=== PATIENT | female | born 1965 | race Caucasian/White ===

== ENCOUNTER 2023-01-23 06:19 | Inpatient (IN) | payer BC ==
[~2023-01-23] VITALS: Ht 154.9 cm; Wt 100.2 kg
[~2023-01-23 06:19] MED LIST: ALPR0.25 PO; AMLO1TAB23 PO; ASPI81CH59 PO; ATOR40TA52 PO; CETI10CA PO; DICL75TA3 PO; ERGO20002 PO; FENO160T PO; FLEC100T PO; FOLI-119 PO; LOSA100T25 PO; METO-159 PO; OME20GT GT; OMEGCAP2 OR; OMEP20TA PO; RED600TA PO; TURM500C3 OR
[2023-01-23] MEDS ORDERED: PREGABALIN CAPSULE 75 MG CAP PO ONE (06:45)
[2023-01-23] MEDS ORDERED: CELECOXIB 100 MG CAP PO ONE (06:45)
[2023-01-23] MEDS ORDERED: ACETAMINOPHEN IV 1000 MG/100ML (10MG/ML) IV ONE (06:45)
[2023-01-23] MEDS ORDERED: VANCOMYCIN HCL 1000 MG VL ONE (07:00)
[2023-01-23] MEDS ORDERED: TRANEXAMIC ACID 20 ML ONE (07:01)
[2023-01-23] MEDS ORDERED: BUPIVACAINE HCL 50 ML ONE (07:01)
[2023-01-23] MEDS ORDERED: EPINEPHrine HCL 1 MG/1 ML AMP ONE (07:01)
[2023-01-23] MEDS ORDERED: KETOROLAC TROMETH 30 MG/ML 1ML VIAL ONE (07:05)
[2023-01-23] MEDS ORDERED: fentaNYL CITRATE 100 MCG/2 ML VL ONE (07:08)
[2023-01-23] MEDS ORDERED: PROPOFOL 10 MG/ML 20 ML IV ONE (07:08)
[2023-01-23] MEDS ORDERED: MORPHINE SULF PF 5 MG/10 ML VIAL ONE (07:09)
[2023-01-23] MEDS ORDERED: MEPERIDINE HCL (25 MG/ML) 1ML VIAL ONE ×3 (07:09→09:00)
[2023-01-23] MEDS ORDERED: ceFAZolin 2 GM/D5W100ml 100 ML IV ONE (07:17)
[2023-01-23] MEDS ORDERED: ONDANSETRON HCL 4 MG/2 ML VIAL ONE (07:26)
[2023-01-23] MEDS ORDERED: DexAMETHasone SOD PHOS 10MG/1ML VIAL INJ ONE (07:26)
[2023-01-23] MEDS ORDERED: ePHEDrine SULFATE 50 MG/ML AMP ONE (07:28)
[2023-01-23] MEDS ORDERED: BUPIVACAINE 0.5% P/F INJ 10 ML VIAL ONE (07:58)
[2023-01-23] MEDS ORDERED: MORPHINE SULFATE INJ 2 MG/ml SYRG IV PRN (08:00)
[2023-01-23] MEDS ORDERED: NITROGLYCERIN 0.4 MG SL TAB SL PRN (08:00)
[2023-01-23] MEDS ORDERED: HYDROmorphone HCL 2 MG/ML VL/or syr IV PRN ×2 (08:00→09:30)
[2023-01-23] MEDS ORDERED: ceFAZolin 1GM/50ML 50 ML IV SCH (08:00)
[2023-01-23] MEDS ORDERED: OMEPRAZOLE 40MG/20ML ORAL SUSP PO SCH (08:00)
[2023-01-23] MEDS ORDERED: SODIUM CHLORIDE LOCK 10 ML ONE (08:40)
[2023-01-23 09:13] VITALS: PULSE 82; RESP 16; O2SAT 97
[2023-01-23] MEDS ORDERED: ONDANSETRON HCL 4 MG/2 ML VIAL IV PRN (09:30)
[2023-01-23] MEDS ORDERED: MEPERIDINE HCL (25 MG/ML) 1ML VIAL IV PRN (09:30)
[2023-01-23] MEDS: ATORVASTATIN 20 MG TAB PO SCH (10:00)
[2023-01-23] MEDS: amLODIPine BESYLATE 5 MG TAB PO SCH (10:00)
[2023-01-23] MEDS ORDERED: METOPROLOL SUCCINATE XL 50 MG TAB PO SCH (10:00)
[2023-01-23] MEDS ORDERED: [UNRECOGNIZED DRUG - REMARK] PO SCH (10:00)
[2023-01-23] MEDS ORDERED: LOSA100T58 PO (10:35)
[2023-01-23] MEDS ORDERED: METO1TAB9 PO (10:35)
[2023-01-23] MEDS ORDERED: DOCU-265 PO (10:35)
[2023-01-23] MEDS ORDERED: ALBUTEROL MEDNEB 2.5 mg/3ml NEB NEB PRN (10:45)
[2023-01-23] MEDS: LACTATED RINGER'S 1,000 ML IV SCH ×2 (10:52→18:00)
[2023-01-23] MEDS: SODIUM CHLOR 0.9% PF (SALINE LOCK) 10ML VIAL/SYR IV SCH ×2 (14:00→20:51)
[2023-01-23 15:06] LABS: Basophils # (auto) 0 10 ^3/uL (0-0.2); Basophils % (auto) 0.1 % (0.0-2.0); Eosinophils # (auto) 0 10 ^3/uL (0-0.8); Hematocrit 35.7 % (36.0-46.0); Hemoglobin 11.5 g/dL (12.2-16.2); Lymphocytes # (auto) 0.9 10 ^3/uL (0.4-5.4); Mean Corpuscular Hemoglobin 28.1 pg (28.0-32.0); Mean Corpuscular Hgb Conc. 32.4 g/dL (32.0-36.0); Mean Corpuscular Volume 86.9 fL (80.0-100.0); Monocytes # (auto) 0.2 10 ^3/uL (0-1.3); Monocytes % (auto) 1.5 % (0.0-12.0); Neutrophils % (auto) 91.4 % (37.0-80.0); Red Cell Distribution Width 14.5 % (11.8-14.3); White Blood Cell 13.2 10^3/uL (4.4-10.8)
[2023-01-23 15:17] VITALS: BP 103/67; PULSE 72; RESP 20; TEMP 97.2; O2SAT 94
[2023-01-23 15:30] LABS: Alanine Aminotransferase 16 U/L (7-40); Albumin 4.2 g/dL (3.2-4.8); Alkaline Phosphatase 50 U/L (46-116); Anion Gap 9 (5-15); Aspartate Aminotransferase 18 U/L (13-40); Bilirubin, Total 0.5 mg/dL (0.2-1.0); Blood Urea Nitrogen 34 mg/dL (9-23); Calcium 9.3 mg/dL (8.5-10.1); Carbon Dioxide 23 mmol/L (20-30); Chloride 104 mmol/L (98-107); Cholesterol 155 mg/dL (< 200); Glucose 138 mg/dL (74-106); HDL Cholesterol 42 mg/dL (40-59); LDL Cholesterol 101 mg/dL (< 100); Potassium 4.6 mmol/L (3.5-5.1); Sodium 136 mmol/L (136-145); Total Protein 6.5 g/dL (5.7-8.2); Triglycerides 92 mg/dL (< 150)
[2023-01-23 17:00] VITALS: BP 95/66; PULSE 51; RESP 18; TEMP 98; O2SAT 92
[2023-01-23] MEDS: OXYCODONE W/ ACETAMINOPHEN 5/325MG TABLET PO PRN (18:47)
[2023-01-23 20:00] VITALS: PULSE 72; PULSE 93; PULSE 94; RESP 19; O2SAT 99
[2023-01-23] MEDS: DICLOFENAC SODIUM 75 MG PO SCH (20:49)
[2023-01-23] MEDS: FLECAINIDE ACETATE 50 MG TAB PO SCH (20:51)
[2023-01-23 22:00] VITALS: BP 94/51; PULSE 42; RESP 16; TEMP 98.3; O2SAT 94
[2023-01-24] VITALS (8 sets, daily range): BP systolic 89–105; BP diastolic 50–61; PULSE 51–92; RESP 16–20; TEMP 97.9–98.5; O2SAT 94–99
[2023-01-24] MEDS: OXYCODONE W/ ACETAMINOPHEN 5/325MG TABLET PO PRN ×4 (03:27→21:09)
[2023-01-24] MEDS: LACTATED RINGER'S 1,000 ML IV SCH ×4 (04:00→16:24)
[2023-01-24] MEDS: SODIUM CHLOR 0.9% PF (SALINE LOCK) 10ML VIAL/SYR IV SCH ×4 (06:00→20:58)
[2023-01-24] MEDS ORDERED: PANTOPRAZOLE 40 MG TAB PO SCH ×2 (08:00→10:00)
[2023-01-24] MEDS: Losartan Potassium & Hydrochlo (Hyzaar) 1 TAB PO SCH ×2 (09:49→10:00)
[2023-01-24] MEDS: FOLIC ACID 1 MG TAB PO SCH ×2 (09:49→10:17)
[2023-01-24] MEDS: ERGOCALCIFEROL PO SCH ×2 (09:50→10:00)
[2023-01-24] MEDS: Fenofibrate 160 MG PO SCH ×2 (09:51→10:00)
[2023-01-24] MEDS: ENOXAPARIN SOD 40 MG/0.4 ML SYRINGE SC SCH ×2 (09:52→10:20)
[2023-01-24] MEDS: ASPirin 81 mg TAB PO SCH (09:52)
[2023-01-24] MEDS: DICLOFENAC SODIUM 75 MG PO SCH ×2 (09:53→20:58)
[2023-01-24] MEDS: LORATADINE 10 MG TAB PO SCH (09:53)
[2023-01-24] MEDS: FLECAINIDE ACETATE 50 MG TAB PO SCH ×2 (09:55→20:57)
[2023-01-24] MEDS: ATORVASTATIN 20 MG TAB PO SCH (10:00)
[2023-01-24] MEDS ORDERED: METOPROLOL SUCCINATE XL 50 MG TAB PO SCH (10:00)
[2023-01-24] MEDS: amLODIPine BESYLATE 5 MG TAB PO SCH (10:00)
[2023-01-24] MEDS ORDERED: HYDROmorphone HCL 2 MG/ML VL/or syr IV PRN (12:30)
[2023-01-24 14:44] LABS: Urine Bacteria NONE SEEN /hpf (None Seen); Urine Blood Negative /uL (Negative); Urine Clarity Clear (Clear); Urine Color Yellow (Yellow); Urine Protein, UAD Negative (Negative); Urine Specific Gravity 1.016 (1.001-1.035); Urine Urobilinogen Normal (Negative); Urine WBC 1 /hpf (0 - 5); Urine pH 5.5 (5.0-8.0)
[2023-01-25] VITALS (9 sets, daily range): BP systolic 96–125; BP diastolic 47–65; PULSE 79–98; RESP 16–20; TEMP 97.8–98.7; O2SAT 94–100
[2023-01-25] MEDS: LACTATED RINGER'S 1,000 ML IV SCH ×2 (01:50→06:08)
[2023-01-25] MEDS: DOCUSATE SOD 100 MG CAP PO PRN ×2 (01:51→15:36)
[2023-01-25] MEDS: OXYCODONE W/ ACETAMINOPHEN 5/325MG TABLET PO PRN ×5 (01:51→21:47)
[2023-01-25] MEDS: SODIUM CHLOR 0.9% PF (SALINE LOCK) 10ML VIAL/SYR IV SCH ×3 (06:00→21:55)
[2023-01-25 06:14] LABS: Basophils # (auto) 0.1 10 ^3/uL (0-0.2); Basophils % (auto) 0.8 % (0.0-2.0); Eosinophils # (auto) 0.6 10 ^3/uL (0-0.8); Eosinophils % (auto) 5.7 % (0.0-7.0); Hematocrit 31.1 % (36.0-46.0); Lymphocytes # (auto) 3.4 10 ^3/uL (0.4-5.4); Lymphocytes % (auto) 32.7 % (10.0-50.0); Mean Corpuscular Hemoglobin 28.4 pg (28.0-32.0); Mean Corpuscular Hgb Conc. 32.1 g/dL (32.0-36.0); Mean Corpuscular Volume 88.4 fL (80.0-100.0); Monocytes % (auto) 9.5 % (0.0-12.0); Neutrophils # (auto) 5.4 10 ^3/uL (1.6-8.6); Neutrophils % (auto) 51.3 % (37.0-80.0); Nucleated Red Blood Cells % 0.1 %; Red Blood Cells 3.52 10^6/uL (4.0-5.20); White Blood Cell 10.5 10^3/uL (4.4-10.8)
[2023-01-25 06:21] LABS: Chloride 105 mmol/L (98-107); Potassium 4.7 mmol/L (3.5-5.1); Sodium 137 mmol/L (136-145)
[2023-01-25 06:22] LABS: Anion Gap 6 (5-15); Carbon Dioxide 26 mmol/L (20-30)
[2023-01-25 06:23] LABS: Calcium 8.8 mg/dL (8.5-10.1)
[2023-01-25 06:27] LABS: BUN/Creatinine Ratio 23.5 (10.0-20.0); Blood Urea Nitrogen 27 mg/dL (9-23); Glucose 99 mg/dL (74-106)
[2023-01-25] MEDS: FLECAINIDE ACETATE 50 MG TAB PO SCH (09:39)
[2023-01-25] MEDS: ATORVASTATIN 20 MG TAB PO SCH (09:39)
[2023-01-25] MEDS: FOLIC ACID 1 MG TAB PO SCH (09:39)
[2023-01-25] MEDS: ASPirin 81 mg TAB PO SCH (09:39)
[2023-01-25] MEDS: LORATADINE 10 MG TAB PO SCH (09:39)
[2023-01-25] MEDS: FAMOTIDINE 20 MG TAB PO SCH (09:39)
[2023-01-25] MEDS: ERGOCALCIFEROL PO SCH (09:40)
[2023-01-25] MEDS: ENOXAPARIN SOD 40 MG/0.4 ML SYRINGE SC SCH (09:40)
[2023-01-25] MEDS: Fenofibrate 160 MG PO SCH (09:40)
[2023-01-25] MEDS: DICLOFENAC SODIUM 75 MG PO SCH ×2 (09:40→21:59)
[2023-01-25] MEDS ORDERED: MAGN400T40 PO (09:44)
[2023-01-25] MEDS: MAGNESIUM SULFATE 1GM/100ML 100 ML IV SCH ×2 (11:14→13:04)
[2023-01-25] MEDS ORDERED: FLEC1TAB PO (11:34)
[2023-01-25] MEDS ORDERED: AMIODARONE BOLUS KIT 100 ML IV ONE (12:45)
[2023-01-25] MEDS ORDERED: METOPROLOL TARTRATE 1MG/1ML-5ML VIAL IV ONE (12:45)
[2023-01-25] MEDS ORDERED: AMIODARONE 450mg/250ml AE 250 ML IV SCH ×2 (13:00→19:00)
[2023-01-26] VITALS (11 sets, daily range): BP systolic 117–145; BP diastolic 60–87; PULSE 44–83; RESP 17–20; TEMP 97.6–98.4; O2SAT 20–98
[2023-01-26] MEDS: OXYCODONE W/ ACETAMINOPHEN 5/325MG TABLET PO PRN ×6 (01:38→22:15)
[2023-01-26] MEDS ORDERED: HYALURONIDASE 150 UNIT/1 ML SUBCUT ONE (02:30)
[2023-01-26] MEDS: SODIUM CHLOR 0.9% PF (SALINE LOCK) 10ML VIAL/SYR IV SCH ×3 (05:58→22:16)
[2023-01-26 06:49] LABS: Chloride 102 mmol/L (98-107); Potassium 4.4 mmol/L (3.5-5.1); Sodium 136 mmol/L (136-145)
[2023-01-26 06:50] LABS: Anion Gap 6 (5-15); Carbon Dioxide 28 mmol/L (20-30)
[2023-01-26 06:51] LABS: Calcium 9.2 mg/dL (8.7-10.4)
[2023-01-26 06:55] LABS: Glucose 98 mg/dL (74-106)
[2023-01-26 06:56] LABS: BUN/Creatinine Ratio 23.9 (10.0-20.0); Blood Urea Nitrogen 21 mg/dL (9-23); Magnesium 1.9 mg/dL (1.6-2.6)
[2023-01-26] MEDS ORDERED: AMIODARONE HCL 200 MG TAB PO ONE (07:00)
[2023-01-26] MEDS: METOPROLOL SUCCINATE XL 50 MG TAB PO SCH (09:20)
[2023-01-26] MEDS: LORATADINE 10 MG TAB PO SCH (09:21)
[2023-01-26] MEDS: FAMOTIDINE 20 MG TAB PO SCH (09:21)
[2023-01-26] MEDS: ASPirin 81 mg TAB PO SCH (09:21)
[2023-01-26] MEDS: FOLIC ACID 1 MG TAB PO SCH (09:22)
[2023-01-26] MEDS: MAGNESIUM OXIDE 400 MG TAB PO SCH (09:23)
[2023-01-26] MEDS: ATORVASTATIN 20 MG TAB PO SCH ×2 (09:23→22:27)
[2023-01-26] MEDS: ENOXAPARIN SOD 40 MG/0.4 ML SYRINGE SC SCH (09:24)
[2023-01-26] MEDS: Fenofibrate 160 MG PO SCH (09:27)
[2023-01-26] MEDS: ERGOCALCIFEROL PO SCH (09:27)
[2023-01-26] MEDS: DICLOFENAC SODIUM 75 MG PO SCH ×2 (09:27→22:00)
[2023-01-26] MEDS: MAGNESIUM SULFATE 1GM/100ML 100 ML IV SCH ×2 (15:56→18:21)
[2023-01-26] MEDS ORDERED: LORazepam 0.5 MG TAB PO PRN (16:15)
[2023-01-26] MEDS ORDERED: MAGNESIUM SULFATE 1GM/100ML 100 ML IV ONE (18:18)
[2023-01-26] MEDS: AMIODARONE HCL 200 MG TAB PO SCH (22:14)
[2023-01-27] VITALS (9 sets, daily range): BP systolic 112–156; BP diastolic 57–95; PULSE 45–90; RESP 15–20; TEMP 97.8–98.9; O2SAT 93–98
[2023-01-27] MEDS: SODIUM CHLOR 0.9% PF (SALINE LOCK) 10ML VIAL/SYR IV SCH ×3 (06:39→21:14)
[2023-01-27 06:44] LABS: Anion Gap 5 (5-15); Carbon Dioxide 29 mmol/L (20-30); Chloride 102 mmol/L (98-107); Potassium 4.3 mmol/L (3.5-5.1); Sodium 136 mmol/L (136-145)
[2023-01-27 06:45] LABS: Calcium 9.4 mg/dL (8.7-10.4)
[2023-01-27 06:49] LABS: Glucose 104 mg/dL (74-106)
[2023-01-27 06:50] LABS: Blood Urea Nitrogen 14 mg/dL (9-23); Magnesium 2.1 mg/dL (1.6-2.6)
[2023-01-27] MEDS: FAMOTIDINE 20 MG TAB PO SCH (09:42)
[2023-01-27] MEDS: LORATADINE 10 MG TAB PO SCH (09:42)
[2023-01-27] MEDS: FOLIC ACID 1 MG TAB PO SCH (09:42)
[2023-01-27] MEDS: METOPROLOL SUCCINATE XL 50 MG TAB PO SCH (09:43)
[2023-01-27] MEDS: MAGNESIUM OXIDE 400 MG TAB PO SCH (09:43)
[2023-01-27] MEDS: ATORVASTATIN 20 MG TAB PO SCH (09:44)
[2023-01-27] MEDS: Fenofibrate 160 MG PO SCH (09:44)
[2023-01-27] MEDS: DICLOFENAC SODIUM 75 MG PO SCH (09:44)
[2023-01-27] MEDS: ASPirin 81 mg TAB PO SCH (09:44)
[2023-01-27] MEDS: ERGOCALCIFEROL PO SCH (09:44)
[2023-01-27] MEDS: AMIODARONE HCL 200 MG TAB PO SCH ×2 (09:44→21:13)
[2023-01-27] MEDS: ENOXAPARIN SOD 40 MG/0.4 ML SYRINGE SC SCH (09:45)
[2023-01-27] MEDS: OXYCODONE W/ ACETAMINOPHEN 5/325MG TABLET PO PRN ×3 (09:53→21:12)
[2023-01-27] MEDS ORDERED: LOSARTAN POTASSIUM 50 MG TAB PO ONE (12:45)
[2023-01-27] MEDS ORDERED: CARVEDILOL 12.5 MG TAB PO ONE ×2 (16:30)
[2023-01-27] MEDS: DOCUSATE SOD 100 MG CAP PO PRN (21:12)
[2023-01-28] MEDS: OXYCODONE W/ ACETAMINOPHEN 5/325MG TABLET PO PRN ×3 (04:15→15:32)
[2023-01-28 05:00] VITALS: BP 153/113; PULSE 55; RESP 19; TEMP 98.1; O2SAT 97
[2023-01-28] MEDS: CARVEDILOL 12.5 MG TAB PO SCH ×2 (06:24→10:00)
[2023-01-28] MEDS: SODIUM CHLOR 0.9% PF (SALINE LOCK) 10ML VIAL/SYR IV SCH ×2 (06:29→14:00)
[2023-01-28 07:51] VITALS: O2SAT 97
[2023-01-28 08:00] VITALS: PULSE 76; PULSE 90; RESP 18; O2SAT 95
[2023-01-28 09:00] VITALS: BP 97/45; PULSE 90; RESP 18; TEMP 98.3; O2SAT 95
[2023-01-28] MEDS: FAMOTIDINE 20 MG TAB PO SCH (09:32)
[2023-01-28] MEDS: MAGNESIUM OXIDE 400 MG TAB PO SCH (09:32)
[2023-01-28] MEDS: AMIODARONE HCL 200 MG TAB PO SCH (09:32)
[2023-01-28] MEDS: FOLIC ACID 1 MG TAB PO SCH (09:32)
[2023-01-28] MEDS: LORATADINE 10 MG TAB PO SCH (09:32)
[2023-01-28] MEDS: ENOXAPARIN SOD 40 MG/0.4 ML SYRINGE SC SCH (09:34)
[2023-01-28] MEDS: DOCUSATE SOD 100 MG CAP PO PRN (09:44)
[2023-01-28] MEDS: ASPirin 81 mg TAB PO SCH (09:46)
[2023-01-28] MEDS: ATORVASTATIN 20 MG TAB PO SCH (09:46)
[2023-01-28] MEDS: Fenofibrate 160 MG PO SCH (09:46)
[2023-01-28] MEDS: ERGOCALCIFEROL PO SCH (09:46)
[2023-01-28 10:37] LABS: Basophils # (auto) 0.1 10 ^3/uL (0-0.2); Basophils % (auto) 0.7 % (0.0-2.0); Eosinophils # (auto) 0.5 10 ^3/uL (0-0.8); Eosinophils % (auto) 5.7 % (0.0-7.0); Hemoglobin 10.9 g/dL (12.2-16.2); Lymphocytes % (auto) 22.3 % (10.0-50.0); Mean Corpuscular Hemoglobin 28.4 pg (28.0-32.0); Mean Corpuscular Hgb Conc. 32.9 g/dL (32.0-36.0); Mean Corpuscular Volume 86.5 fL (80.0-100.0); Monocytes # (auto) 1.1 10 ^3/uL (0-1.3); Monocytes % (auto) 11.5 % (0.0-12.0); Neutrophils # (auto) 5.5 10 ^3/uL (1.6-8.6); Neutrophils % (auto) 59.8 % (37.0-80.0); Red Blood Cells 3.82 10^6/uL (4.0-5.20); Red Cell Distribution Width 14.1 % (11.8-14.3); White Blood Cell 9.2 10^3/uL (4.4-10.8)
[2023-01-28 10:57] LABS: Alanine Aminotransferase 15 U/L (7-40); Alkaline Phosphatase 78 U/L (46-116); Anion Gap 5 (5-15); Aspartate Aminotransferase 17 U/L (13-40); BUN/Creatinine Ratio 22.9 (10.0-20.0); Blood Urea Nitrogen 22 mg/dL (9-23); Calcium 9.6 mg/dL (8.5-10.1); Carbon Dioxide 27 mmol/L (20-30); Chloride 104 mmol/L (98-107); Glucose 120 mg/dL (74-106); Potassium 4.6 mmol/L (3.5-5.1); Sodium 136 mmol/L (136-145)
[2023-01-28 10:58] LABS: Albumin 4.1 g/dL (3.2-4.8); Bilirubin, Total 0.7 mg/dL (0.2-1.0); Total Protein 6.3 g/dL (5.7-8.2)
[2023-01-28] MEDS ORDERED: CARV6.25 PO (12:22)
[2023-01-28 13:00] VITALS: BP 98/55; PULSE 53; RESP 16; TEMP 98.1; O2SAT 96
[2023-01-28 14:13] VITALS: BP 124/76; PULSE 81; RESP 16; TEMP 98.1; O2SAT 96
== END 2023-01-28 16:16 | disposition home or self-care (01) | DRG 470 ==
LOC: SUR 06:19 → TELE 07:59 → TELE-CENTR 14:30 → OBSVTOIN 01-25 11:11
PROVIDERS: ADMIT Internal Medicine; ATTEND Internal Medicine
PROC: 0SRC0J9 Replacement of Right Knee Joint with Synthetic Substitute, Cemented, Open Approach (ICD-10-PCS; principal; 2023-01-23 07:19)
DX: M17.11 Unilateral primary osteoarthritis, right knee (principal); I47.29 Other ventricular tachycardia; Z68.41 Body mass index [BMI] 40.0-44.9, adult; E66.01 Morbid (severe) obesity due to excess calories; E78.5 Hyperlipidemia, unspecified; E83.42 Hypomagnesemia; I10 Essential (primary) hypertension; J45.909 Unspecified asthma, uncomplicated; K21.9 Gastro-esophageal reflux disease without esophagitis; I95.9 Hypotension, unspecified; Z95.810 Presence of automatic (implantable) cardiac defibrillator; Z90.12 Acquired absence of left breast and nipple; Z88.1 Allergy status to other antibiotic agents; Z83.3 Family history of diabetes mellitus; Z82.0 Family history of epilepsy and other diseases of the nervous system; Z82.49 Family history of ischemic heart disease and other diseases of the circulatory system
CPT/HCPCS: 36415; 71045; 73562; 80048; 80053; 80061; 81001; 83735; 84443; 85025; 86850; 86900; 86901; 93005; 93306; 97110; 97116; 97163; 97530; G0378; J0131; J0171; J0690; J1100; J1885; J2405; J2704; J3470; J3490